=== PATIENT | female | born 1980 | race Caucasian/White ===

== ENCOUNTER 2016-08-30 15:57 | Emergency (ER) | payer OTHER ==
[2016-08-30] MEDS ORDERED: METHOCARBAMOL 750 MG TABLET ONE (17:26)
[2016-08-30] MEDS ORDERED: LIDOCAINE 5% PATCH ONE (17:26)
[2016-08-30] MEDS ORDERED: ONDANSETRON 4 MG ODT TAB ONE (17:26)
[2016-08-30] MEDS ORDERED: ACETAMINOPHEN 500 MG TABLET ONE (17:26)
[2016-08-30] MEDS ORDERED: OXYCODONE HCL 5 MG TABLET ONE (17:26)
[2016-08-30 17:59] LABS: SPECIFIC GRAVITY 1.015 (1.001-1.030); URINE APPEARANCE CLEAR; URINE BILIRUBIN NEGATIVE (NEGATIVE); URINE BLOOD 1+ (NEGATIVE); URINE COLOR STRAW; URINE GLUCOSE (UA) NEGATIVE (NEGATIVE); URINE LEUKOCYTE ESTERASE NEGATIVE (NEGATIVE); URINE NITRITE NEGATIVE (NEGATIVE); URINE PROTEIN NEGATIVE (NEGATIVE); URINE UROBILINOGEN NORMAL (0-1 mg/dl)
[2016-08-30 18:09] LABS: HCG,QUALITATIVE URINE NEGATIVE
[2016-08-30 18:11] LABS: URINE BACTERIA RARE; URINE EPITHELIAL CELLS 0-2 /hpf; URINE RBC 0-2 /hpf; URINE WBC 0-2 /hpf
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
== END 2016-08-30 19:24 | disposition home or self-care (01) ==
LOC: ED 15:57
DX: M79.605 Pain in left leg (principal); M47.816 Spondylosis without myelopathy or radiculopathy, lumbar region; R11.0 Nausea; F17.210 Nicotine dependence, cigarettes, uncomplicated; V43.52XA Car driver injured in collision with other type car in traffic accident, initial encounter; Y92.410 Unspecified street and highway as the place of occurrence of the external cause
CPT/HCPCS: 81025; 81001; 73564; 72131; 99284; 99283; A9270 ×5